=== PATIENT | female | born 1980 ===

== ENCOUNTER 2021-07-19 14:06 | Emergency (ER) | payer BC ==
[2021-07-19] MEDS ORDERED: Cyclobenzaprine 10 MG TAB ONE (15:10)
[2021-07-19] MEDS ORDERED: Acetaminophen 325 MG TAB ONE (15:10)
[2021-07-19] MEDS ORDERED: Ketorolac Tromethamine 30 MG/ML VIAL ONE (16:13)
[2021-07-19 17:00] LABS: Bilirubin Negative (Negative); Blood, Urine Negative (Negative); Clarity Clear (Clear); Glucose, Urine (Dipstick) Normal (Negative); Ketone, Urine Negative (Negative); Leukocyte Negative Leu/uL (Negative); Nitrite Negative (Negative); Protein, Urine (Dipstick) Negative (Neg-Trace); Specific Gravity, Urine 1.014 (1.002-1.036); Urobilinogen Normal mg/dL (Less than 2)
[2021-07-19 17:01] LABS: Pregnancy Test - Urine (BHCG) Negative (Negative); Pregu Control Background? CLEAR/WHITE (CLR/WHITE); Pregu Control Bar Appear? YES (CONTROL BAR); Specific Gravity 1.014 (1.002-1.036)
== END 2021-07-19 17:45 | disposition home or self-care (01) ==
LOC: ERS 14:06
DX: S29.012A Strain of muscle and tendon of back wall of thorax, initial encounter (principal)
CPT/HCPCS: 71045; 81003; 81025; 96372; J1885